=== PATIENT | female | born 1985 | race African-American/Black ===

== ENCOUNTER 2019-06-22 17:18 | Emergency (ER) | payer OTHER ==
[~2019-06-22] VITALS: Ht 162.6 cm; Wt 63.6 kg
[2019-06-22 17:28] VITALS: Ht 162.6 cm; Wt 63.6 kg
[2019-06-22] MEDS ORDERED: ZOLOFT25 MG (17:29)
--- NOTE | 2019-06-22 17:57 | NUR ---
According to the suicide assessment the patient rates high for suicidal ideations. She will require a 1:1 observation, provide her a saftey plan and suicide resource flyer.
[2019-06-22 18:10] LABS: BASOPHILS 0.2 % (0-2); EOSINOPHILS 1.3 % (0-7); HEMATOCRIT 39.9 % (36.0-48.0); HEMOGLOBIN 12.9 g/dL (12-16); IMMATURE GRANULOCYTES 0.2 % (0-5); LYMPHOCYTES 21.7 % (15-50); MCH 27.7 pg (26.0-34.0); MCHC 32.3 g/dL (31.0-37.0); MCV 85.8 fL (80.0-100.0); MEAN PLATELET VOLUME 10.1 fL (7.4-10.4); MONOCYTES 9.5 % (2-11); NEUTROPHILS 67.1 % (40-80); PLATELET COUNT 214 10x3/uL (130-400); RBC 4.65 10x6/uL (4.00-5.40); RDW 13.8 % (11.5-14.5)
[2019-06-22 18:18] LABS: ANION GAP 12.6 mmol/L (8-16); CALCIUM 9.3 mg/dL (8.5-10.1); CARBON DIOXIDE 28.4 mmol/L (21.0-32.0)
[2019-06-22 18:23] LABS: ALBUMIN 3.9 g/dL (3.4-5.0); BILIRUBIN - TOTAL 0.62 mg/dL (0.2-1.3); PROTEIN - SERUM 8.2 g/dL (6.4-8.2)
[2019-06-22 18:33] LABS: APPEARANCE CLEAR (CLEAR); BILIRUBIN NEGATIVE (NEGATIVE); COLOR YELLOW (YELLOW); GLUCOSE NEGATIVE (NEGATIVE); KETONE NEGATIVE (NEGATIVE); NITRITE NEGATIVE (NEGATIVE); PROTEIN NEGATIVE (NEGATIVE); UROBILINOGEN NORMAL (NORMAL)
[2019-06-22 18:34] LABS: HCG URINE NEGATIVE (NEGATIVE)
[2019-06-22 18:40] LABS: UDS - AMPHET NEGATIVE QUAL (NEGATIVE); UDS - BARB NEGATIVE QUAL (NEGATIVE); UDS - BENZO NEGATIVE QUAL (NEGATIVE); UDS - COCAINE NEGATIVE QUAL (NEGATIVE); UDS - OPIATE NEGATIVE QUAL (NEGATIVE); UDS - PCP NEGATIVE QUAL (NEGATIVE); UDS - THC NEGATIVE QUAL (NEGATIVE)
[2019-06-22 21:25] VITALS: BP 144/90
== END 2019-06-22 23:24 ==
LOC: D.ER 17:18
PROVIDERS: Family Medicine
DX: R45.851 Suicidal ideations (principal)